=== PATIENT | female | born 1985 | race Caucasian/White ===

== ENCOUNTER 2019-04-12 10:15 | Emergency (ER) | payer OTHER ==
[2019-04-12 10:31] VITALS: BP 135/90
--- NOTE | 2019-04-12 11:01 | ER Document Report ---
ED Medical Screen (RME) - General Chief Complaint: Abdominal Pain Stated Complaint: ABDOMINAL PAIN Time Seen by Provider: 04/12/19 10:56 Notes: Patient is a 34-year-old female who presents to the emergency department with a chief complaint of left lower pelvic/abdominal pain. Patient's symptoms started this past Thursday. Patient states that she has a history of PCOS and sometimes gets ovarian cysts, but her pain normally goes away. This time, her pain stayed. Exam: Mildly tender left lower pelvic area. Exam limited due to patient in sitting position. I have greeted and performed a rapid initial assessment of this patient. A comprehensive ED assessment and evaluation of the patient, analysis of test results and completion of medical decision making process will be conducted by an additional ED providers. Physical Exam - Vital signs Vitals: Temp Pulse Resp BP Pulse Ox 98.2 F 101 H 18 135/90 H 98 04/12/19 10:30 04/12/19 10:30 04/12/19 10:30 04/12/19 10:30 04/12/19 10:30 Course - Vital Signs Vital signs: Temp Pulse Resp BP Pulse Ox 98.2 F 101 H 18 135/90 H 98 04/12/19 10:30 04/12/19 10:30 04/12/19 10:30 04/12/19 10:30 04/12/19 10:30
[2019-04-12 11:23] LABS: ABSOLUTE BASOPHILS # (AUTO) 0.1 10^3/uL (0.0-0.2); ABSOLUTE EOSINOPHILS # (AUTO) 0.2 10^3/uL (0.0-0.6); ABSOLUTE LYMPHOCYTES (AUTO) 2.3 10^3/uL (0.5-4.7); ABSOLUTE MONOCYTES (AUTO) 0.7 10^3/uL (0.1-1.4); ABSOLUTE NEUT (AUTO) 9.3 10^3/uL (1.7-8.2); BASOPHILS % (AUTO) 0.5 % (0-2); EOSINOPHILS % (AUTO) 1.5 % (0-6); HEMATOCRIT 40.2 % (36.0-47.0); HEMOGLOBIN 13.6 g/dL (12.0-15.5); LYMPHOCYTES % (AUTO) 18.6 % (13-45); MEAN CORPUSCULAR HEMOGLOBIN 27.5 pg (27.0-33.4); MEAN CORPUSCULAR HGB CONC 33.9 g/dL (32.0-36.0); MEAN CORPUSCULAR VOLUME 81 fl (80-97); MONOCYTES % (AUTO) 5.5 % (3-13); PLATELET COUNT 420 10^3/uL (150-450); RED BLOOD COUNT 4.94 10^6/uL (3.72-5.28); RED CELL DISTRIBUTION WIDTH 15.4 % (11.5-14.0); SEGMENTED NEUTROPHILS % (AUTO) 73.9 % (42-78); TOTAL CELLS COUNTED % (AUTO) 100 %; WHITE BLOOD COUNT 12.6 10^3/uL (4.0-10.5)
[2019-04-12 11:25] LABS: APPEARANCE,URINE CLEAR; BILIRUBIN,URINE NEGATIVE (NEGATIVE); COLOR,URINE STRAW; GLUCOSE, URINE NEGATIVE (NEGATIVE); KETONES,URINE NEGATIVE (NEGATIVE); PROTEIN,URINE NEGATIVE (NEGATIVE); UROBILINOGEN,URINE NEGATIVE mg/dL (<2.0)
[2019-04-12 11:42] LABS: ALBUMIN 4.3 g/dL (3.5-5.0); ALKALINE PHOSPHATASE 115 U/L (38-126); ANION GAP 8 (5-19); ASPARTATE AMINO TRANSFERASE 21 U/L (14-36); BILIRUBIN,TOTAL 0.4 mg/dL (0.2-1.3); BLOOD UREA NITROGEN 10 mg/dL (7-20); CALCIUM 9.2 mg/dL (8.4-10.2); CARBON DIOXIDE 29 mmol/L (22-30); CHLORIDE 102 mmol/L (98-107); GLUCOSE 91 mg/dL (75-110); POTASSIUM 4.2 mmol/L (3.6-5.0); TOTAL PROTEIN 7.7 g/dL (6.3-8.2)
--- NOTE | 2019-04-12 12:01 | RADIOLOGY REPORT (SQ) ---
EXAM DESCRIPTION: U/S NON OB PEL TV W/DOPPLER COMPLETED DATE/TIME: 04/12/2019 11:47 am REASON FOR STUDY: left lower pelvic pain COMPARISON: None. TECHNIQUE: Dynamic and static grayscale images acquired of the pelvis via transvaginal approach and recorded on PACS. Additional selected color Doppler and spectral images recorded. LIMITATIONS: None. FINDINGS: UTERUS: Contour normal. No mass. ENDOMETRIAL STRIPE: No focal or generalized thickening. No masses. CERVIX: 2.3 cm. No nabothian cysts. RIGHT OVARY AND DOPPLER: Ovary not seen. LEFT OVARY AND DOPPLER: Normal size. No worrisome masses. Normal arterial vascular flow without evide nce for torsion. FREE FLUID: Small amount of free fluid. OTHER: No other significant finding. MEASUREMENTS: UTERUS: 6.2 x 3.7 x 3.5 cm. ENDOMETRIAL STRIPE: 11 mm. RIGHT OVARY: Not seen. LEFT OVARY: 3.2 x 2.2 x 2.1 cm. IMPRESSION: NORMAL TRANSVAGINAL PELVIC ULTRASOUND. TECHNICAL DOCUMENTATION: JOB ID: [id number] [employer]- All Rights Reserved Rev-07/03 Reading location - IP/workstation name: [email or web address]
--- NOTE | 2019-04-12 12:27 | ER Document Report ---
ED General - General Chief Complaint: Abdominal Pain Stated Complaint: ABDOMINAL PAIN Time Seen by Provider: 04/12/19 10:56 Mode of Arrival: Ambulatory Information source: Patient Notes: Patient is a 34-year-old female presenting to the emergency department chief complaint of abdominal pain. Patient states that the pain is been ongoing since Thursday and because of increased duration she concerned that there may be something else going on. Patient denies travel history trauma history sick contacts no bad food exposure. TRAVEL OUTSIDE OF THE [place] IN LAST 30 DAYS: No - HPI Onset: Last week Onset/Duration: Constant Quality of pain: Pressure, Throbbing Pain Level: 3 Associated symptoms: None Exacerbated by: Movement Relieved by: Remaining still Similar symptoms previously: Yes Recently seen / treated by doctor: No Past Medical History - General Information source: Patient - Social History Smoking Status: Unknown if Ever Smoked Frequency of alcohol use: Rare Drug Abuse: None Lives with: Family Family History: Other - PCOS Patient has suicidal ideation: No Patient has homicidal ideation: No Renal/ Medical History: Reports: Hx Ovarian Cysts Surgical Hx: Negative Review of Systems - Review of Systems Notes: REVIEW OF SYSTEMS: CONSTITUTIONAL : Denies fever, chills, or sweats. Denies recent illness. EENT: Denies eye, ear, throat, or mouth pain or symptoms. Denies nasal or sinus congestion. CARDIOVASCULAR: Denies chest pain. RESPIRATORY: Denies cough, cold, or chest congestion. Denies shortness of breath, difficulty breathing, or wheezing. GASTROINTESTINAL: Per HPI GENITOURINARY: Denies difficulty urinating, painful urination, burning, frequency, or blood in urine. MUSCULOSKELETAL: Denies neck or back pain or joint pain or swelling. SKIN: Denies rash or skin lesions. HEMATOLOGIC : Denies easy bruising or bleeding. NEUROLOGICAL: Denies altered mental status or loss of consciousness. Denies headache. Denies weakness or paralysis or loss of use of either side. Denies problems with gait or speech. Denies sensory or motor loss. PSYCHIATRIC: Denies suicidal or homicidal ideations 10 Systems are negative unless otherwise specified above Physical Exam - Vital signs Vitals: Temp Pulse Resp BP Pulse Ox 98.2 F 101 H 18 135/90 H 98 04/12/19 10:30 04/12/19 10:30 04/12/19 10:30 04/12/19 10:30 04/12/19 10:30 Notes: PHYSICAL EXAMINATION: GENERAL: Well-appearing, well-nourished and in no acute distress. HEAD: Atraumatic, normocephalic. EYES: Pupils equal round and reactive to light, extraocular movements intact, sclera anicteric, conjunctiva are normal. ENT: nares patent, oropharynx clear without exudates. Moist mucous membranes. NECK: Normal range of motion, supple without lymphadenopathy, no appreciable JVD LUNGS: Lungs clear to auscultation bilaterally and equal. No wheezes rales or rhonchi. HEART: Regular rate and rhythm without murmurs ABDOMEN: Soft, minimal guarding minimal rebound tender to the left or lower quadrant worse with palpation EXTREMITIES: Active full range of motion, no pitting or edema. No cyanosis. 2+ pulses x4 NEUROLOGICAL: No focal neurological deficits. Moves all extremities spontaneously and on command. SKIN: Warm, Dry, and intact. Normal turgor, no rashes or lesions noted. Course - Re-evaluation Re-evalutation: 04/12/19 13:03 I reviewed the laboratory and radiologic results with the patient she is agreeable with discharge home with follow-up with her primary care provider. Recommend Tylenol or Motrin for breakthrough pain and decrease in greasy or spicy foods. Return to the emergency department for worsening symptoms. - Vital Signs Vital signs: Temp Pulse Resp BP Pulse Ox 98.2 F 101 H 18 135/90 H 98 04/12/19 10:30 04/12/19 10:30 04/12/19 10:30 04/12/19 10:30 04/12/19 10:30 - Laboratory Result Diagrams: 04/12/19 11:10 04/12/19 11:10 Laboratory results interpreted by me: 04/12/19 04/12/19 04/12/19 11:10 11:10 11:10 WBC 12.6 H RDW 15.4 H Absolute Neuts (auto) 9.3 H Creatinine 0.51 L Urine Blood SMALL H - Diagnostic Test Radiology reviewed: Reports reviewed Discharge - Discharge Clinical Impression: Abdominal pain Qualifiers: Abdominal location: left lower quadrant Qualified Code(s): R10.32 - Left lower quadrant pain Condition: Stable Disposition: HOME, SELF-CARE Instructions: Abdominal Pain ([facility]) Additional Instructions: Ovarian Cyst Your examination shows the presence of an ovarian cyst. This is a ball of fluid attached to the ovary. Ovarian cysts in women of child-bearing age are usually innocent. However, the cyst may cause pain when it grows or bursts. An innocent ovarian cyst will usually go away by itself. When the cyst becomes painful, you should rest. Pain medication may be required. Some women find a hot water bottle soothing. The pain usually resolves within one or two days. After menopause, an ovarian cyst may mean a tumor, and requires more aggressive evaluation -- usually surgery is recommended to remove or biopsy the cyst. A very large cyst requires evaluation at any age. Most cysts (even the innocent ones) require follow-up examination. Call the doctor or return at any time if the pain increases significantly, if you become faint, or if you experience vaginal bleeding. Forms: Return to Work
== END 2019-04-12 15:10 | disposition home or self-care (01) ==
LOC: ER 10:15
DX: R10.32 Left lower quadrant pain (principal)
CPT/HCPCS: 36415; 76830; 80053; 81001; 84703; 85025; 86900; 86901; 93976; 99284